=== PATIENT | male | born 1985 | race Caucasian/White ===

== ENCOUNTER 2016-05-28 13:18 | Observation (INO) ==
--- NOTE | 2016-05-28 13:43 | Emergency Department Note ---
Disposition Clinical Impression: Depression, Acute anxiety, Laceration of arm, left, multiple sites, Suicidal ideation Disposition: Admitted As Inpatient Forms: ED Satisfaction Letter General Adult HPI - General Chief complaint: ED Psychiatric Symptoms Stated complaint: SI Time Seen by Provider: 05/28/16 13:43 Source: patient Limitations: no limitations - History of Present Illness HPI Narrative: 30-year-old male with a history of psychiatric disease reports the emergency department complaining of anxiety and depression and feeling like harming himself. He cut himself multiple times on the left upper extremity. The patient reports she has been feeling poorly for about 3 days. Apart from injuring his left arm he has no physical complaints. There is no history of headache or confusion neck stiffness rash or fever no chest pain shortness of breath abdominal pain vomiting or diarrhea. No troubles walking talking hearing seeing or speaking no cough runny nose ear pain sore throat back pain urinary problems or any other complaint or concern. There is no history of drug overdose. His last tetanus shot was 4 years ago, he is sure about this. Onset (ago): hour(s) Pain Scale: 0 - Related Data Previous Rx's Medication Instructions Recorded Escitalopram [Lexapro] 10 mg PO DAILY #30 tablet 04/17/16 RisperiDONE [RisperDAL] 2 mg PO HS #60 tablet 04/17/16 TraZODone 50 mg PO HS PRN #30 tablet 04/17/16 Allergies Allergy/AdvReac Type Severity Reaction Status Date / Time Penicillins [PCN] Allergy Anaphylaxis Verified 05/28/16 13:19 All systems ED: reviewed and negative except as stated. Past Medical History - Past Medical History Medical history: Reports: no medical history, other (Anxiety PTSD bipolar depression) Surgical history: Reports: no surgical history Psychiatric history: Reports: anxiety, bipolar, PTSD, prior suicide attempt, previous psychiatric hospitalization - Social History Smoking Status: Current every day smoker Smokeless Tobacco Status: No Alcohol use: Reports: none Drug use: Reports: marijuana Physical Exam - General Limitations: no limitations General appearance: alert, in no apparent distress - Head Head exam: atraumatic, normocephalic, normal inspection - Eye Eye exam: Present: normal appearance, PERRL, EOMI. Absent: scleral icterus, conjunctival injection, miosis, mydriasis - ENT ENT exam: normal exam, normal oropharynx, mucous membranes moist - Neck Neck exam: Present: normal inspection, full ROM, trachea midline. Absent: tenderness - Chest Chest inspection: Present: normal inspection, symmetric chest wall rise. Absent : tenderness - Respiratory Respiratory exam: Present: normal lung sounds bilaterally. Absent: respiratory distress - Cardiovascular Cardiovascular exam: Present: regular rate, normal rhythm, normal heart sounds - Abdominal Exam Abdominal exam: Present: soft, Non-Tender, normal bowel sounds. Absent: tenderness, distention, guarding, rebound, rigidity, trauma - Extremities Exam Extremities exam: Present: full ROM, normal capillary refill, other (All extremities are supple and warm and well perfused without cyanosis or edema. No evidence of trauma apart from the left upper extremity where multiple superficial skin lacerations are noted without evidence of cellulitis. No crepitance of the skin blackening or blistering. No bleeding. No deep or suturable wounds. There is no evidence of neurovascular or neuromuscular compromise in any extremity and the extremities are otherwise atraumatic.). Absent: tenderness, pedal edema, joint swelling, calf tenderness - Expanded Lower Extremity Exam Hip/Pelvis exam: Present: full ROM Upper leg exam: Present: normal inspection, full ROM. Absent: tenderness Knee exam: Present: normal inspection, full ROM. Absent: tenderness Lower leg exam: Present: normal inspection, full ROM. Absent: tenderness Ankle exam: Present: normal inspection, full ROM. Absent: tenderness Foot/toe exam: Present: full ROM. Absent: tenderness Neurovascular/Tendon exam: Absent: motor deficit, sensory deficit, tendon deficit - Back Exam Back exam: Present: normal inspection, full ROM. Absent: tenderness, CVA tenderness (R), CVA tenderness (L), vertebral tenderness - Neurological Exam Neurological exam: Present: alert, oriented X3, CN II-XII intact. Absent: motor sensory deficit - Psychiatric Psychiatric exam: Present: normal affect, normal mood - Skin Skin exam: Present: warm, dry, intact (Skin intact apart from superficial lacerations left upper extremity multiple as described.), normal color. Absent : rash, cyanosis, diaphoresis, erythema, pallor, mottled Course Vital Signs Temperature 97.7 F 05/28/16 13:19 Pulse Rate 90 05/28/16 13:19 Respiratory Rate 16 05/28/16 13:19 Blood Pressure 129/78 05/28/16 13:19 O2 Sat by Pulse Oximetry 98 05/28/16 13:19 Temperature 97.7 F 05/28/16 13:19 Pulse Rate 90 05/28/16 13:19 Respiratory Rate 16 05/28/16 13:19 Blood Pressure 129/78 05/28/16 13:19 O2 Sat by Pulse Oximetry 98 05/28/16 13:19 Oxygen Delivery Oxygen Delivery Room Air Medical Decision Making - MDM Narrative Medical decision making narrative: The patient has a history of known psychiatric disease and is actively considering suicide. He has injured himself/cut his left upper extremity multiple places. Based on my history and clinical examination, the patient has been medically cleared. Psychiatric services have been consulted. Psychiatric services recommends admission to the psychiatric service. Patient currently stable pending admission - Lab Data Lab results reviewed: Yes I reviewed the patient's lab results. Result diagrams: 05/28/16 13:53 05/28/16 13:53 Lab Results 05/28/16 05/28/16 05/28/16 Range/Units 13:47 13:47 13:53 WBC 8.3 (4.3-11.1) K/mcL RBC 5.60 H (4.19-5.50) M/mcL Hgb 18.0 H (12.9-16.9) g/dL Hct 50.5 H (37.5-50.1) % MCV 90.2 (83.0-100.0) fL MCH 32.1 (28.0-33.3) pg MCHC 35.6 H (31.6-35.5) g/dL RDW 12.1 (11.5-14.5) % Plt Count 309 (140-400) K/mcL MPV 10.4 (9.4-12.4) fL Immature Gran % 0.5 (0-4) % Seg Neutrophils % 79.5 % Lymphocytes % 13.7 % Monocytes % 4.9 % Eosinophils % 1.0 % Basophils % 0.4 % Neutrophils # 6.6 (1.6-8.9) K/mcL Lymphocytes # 1.1 (0.6-4.6) K/mcL Monocytes # 0.4 (0.0-1.3) K/mcL Eosinophils # 0.1 (0.0-0.6) K/mcL Basophils # 0.0 (0.0-0.2) K/mcL Immature Plt Fraction 5.5 (1.1-6.1) % Sodium (136-145) mEq/L Potassium (3.5-4.5) mEq/L Chloride (98-109) mEq/L Carbon Dioxide (19-29) mEq/L BUN (8-26) mg/dL Creatinine (0.72-1.25) mg/dL Est GFR ( Amer) (> 60) Est GFR (Non-Af Amer) (> 60) BUN/Creatinine Ratio (6-26) Glucose (70-99) mg/dL Calculated Osmolality (280-300) Calcium (8.6-10.8) mg/dL Urine Color Yellow (Yellow) Urine Clarity Clear (Clear) Urine pH 6.5 (5.0-8.0) pH Units Ur Specific [place] 1.020 (1.010-1.025) Urine Protein Negative (Neg-Trace) mg/dL Urine Glucose (UA) Normal (Normal) mg/dL Urine Ketones Negative (Negative) mg/dL Urine Blood Negative (Negative) Urine Nitrite Negative (Negative) Urine Bilirubin Negative (Negative) Urine Urobilinogen Normal (Normal) mg/dL Ur Leukocyte Esterase Negative (Negative) Salicylates (15-30) mg/dL Urine Opiates Screen Negative (Boktbt=975) ng/mL Acetaminophen (10-30) mcg/mL Ur Barbiturates Screen Negative (Enhoqb=546) ng/mL Ur Phencyclidine Scrn Negative (Cutoff=25) ng/mL Ur Amphetamines Screen Negative (Khckff=6497) ng/mL U Benzodiazepines Scrn Negative (Amloje=633) ng/mL Urine Cocaine Screen Negative (Cutoff= 300) ng/mL U Marijuana (THC) Screen Negative (Cutoff = 50) ng/mL Ethyl Alcohol (0-10) mg/dL 05/28/16 Range/Units 13:53 WBC (4.3-11.1) K/mcL RBC (4.19-5.50) M/mcL Hgb (12.9-16.9) g/dL Hct (37.5-50.1) % MCV (83.0-100.0) fL MCH (28.0-33.3) pg MCHC (31.6-35.5) g/dL RDW (11.5-14.5) % Plt Count (140-400) K/mcL MPV (9.4-12.4) fL Immature Gran % (0-4) % Seg Neutrophils % % Lymphocytes % % Monocytes % % Eosinophils % % Basophils % % Neutrophils # (1.6-8.9) K/mcL Lymphocytes # (0.6-4.6) K/mcL Monocytes # (0.0-1.3) K/mcL Eosinophils # (0.0-0.6) K/mcL Basophils # (0.0-0.2) K/mcL Immature Plt Fraction (1.1-6.1) % Sodium 139 (136-145) mEq/L Potassium 3.9 (3.5-4.5) mEq/L Chloride 106 (98-109) mEq/L Carbon Dioxide 21 (19-29) mEq/L BUN 10 (8-26) mg/dL Creatinine 0.91 (0.72-1.25) mg/dL Est GFR ( Amer) > 60 (> 60) Est GFR (Non-Af Amer) > 60 (> 60) BUN/Creatinine Ratio 11 (6-26) Glucose 160 H (70-99) mg/dL Calculated Osmolality 290 (280-300) Calcium 9.5 (8.6-10.8) mg/dL Urine Color (Yellow) Urine Clarity (Clear) Urine pH (5.0-8.0) pH Units Ur Specific [place] (1.010-1.025) Urine Protein (Neg-Trace) mg/dL Urine Glucose (UA) (Normal) mg/dL Urine Ketones (Negative) mg/dL Urine Blood (Negative) Urine Nitrite (Negative) Urine Bilirubin (Negative) Urine Urobilinogen (Normal) mg/dL Ur Leukocyte Esterase (Negative) Salicylates < 5.0 L (15-30) mg/dL Urine Opiates Screen (Dckkww=596) ng/mL Acetaminophen < 1.0 L (10-30) mcg/mL Ur Barbiturates Screen (Rvgoex=369) ng/mL Ur Phencyclidine Scrn (Cutoff=25) ng/mL Ur Amphetamines Screen (Ggtskn=3214) ng/mL U Benzodiazepines Scrn (Ktfoaz=108) ng/mL Urine Cocaine Screen (Cutoff= 300) ng/mL U Marijuana (THC) Screen (Cutoff = 50) ng/mL Ethyl Alcohol < 10 (0-10) mg/dL
[2016-05-28 13:55] LABS: Bilirubin,Urine Negative (Negative); Blood,Urine Negative (Negative); Clarity,Urine Clear (Clear); Color,Urine Yellow (Yellow); Glucose,Urine (UA) Normal (Normal); Ketones,Urine Negative (Negative); Leukocyte Esterase,Urine Negative (Negative); Nitrite,Urine Negative (Negative); PH,Urine 6.5 pH Units (5.0-8.0); Protein,Urine Negative (Neg-Trace); Urobilinogen,Urine Normal (Normal)
[2016-05-28 13:59] LABS: Basophils % 0.4 %; Eosinophils # 0.1 K/mcL (0.0-0.6); Hematocrit 50.5 % (37.5-50.1); Immature Granulocytes % 0.5 % (0-4); Immature Platelets 5.5 % (1.1-6.1); Lymphocytes # 1.1 K/mcL (0.6-4.6); Lymphocytes % 13.7 %; Mean Corpuscular HGB Conc 35.6 g/dL (31.6-35.5); Mean Corpuscular Hemoglobin 32.1 pg (28.0-33.3); Mean Corpuscular Volume 90.2 fL (83.0-100.0); Mean Platelet Volume 10.4 fL (9.4-12.4); Monocytes # 0.4 K/mcL (0.0-1.3); Monocytes % 4.9 %; Neutrophils # 6.6 K/mcL (1.6-8.9); Platelet Count 309 K/mcL (140-400); Red Cell Distribution Width 12.1 % (11.5-14.5); Segmented Neutrophils % 79.5 %
[2016-05-28 14:00] LABS: Amphetamine Screen,Urine Negative ng/mL (Cutoff=1000); Barbiturate Screen,Urine Negative ng/mL (Cutoff=200); Benzodiazepines Screen,Urine Negative ng/mL (Cutoff=200); Cannabinoid Screen,Urine Negative ng/mL (Cutoff = 50); Cocaine Screen,Urine Negative ng/mL (Cutoff= 300); Opiate Screen,Urine Negative ng/mL (Cutoff=300); Phencyclidine Screen,Urine Negative ng/mL (Cutoff=25)
[2016-05-28 14:16] LABS: BUN/Creatinine Ratio 11 (6-26); Blood Urea Nitrogen 10 mg/dL (8-26); Calcium 9.5 mg/dL (8.6-10.8); Carbon Dioxide 21 mEq/L (19-29); Chloride 106 mEq/L (98-109); Glucose 160 mg/dL (70-99); Osmolality,Calculated 290 (280-300); Potassium 3.9 mEq/L (3.5-4.5); Sodium 139 mEq/L (136-145); eGFR For African Americans > 60 (> 60); eGFR For Non-African Americans > 60 (> 60)
[2016-05-28 14:17] LABS: Acetaminophen < 1.0 mcg/mL (10-30); Ethanol < 10 mg/dL (0-10); Salicylate < 5.0 mg/dL (15-30)
[2016-05-28] MEDS ORDERED: *HR* LORazepam 1 MG TABLET PO PRN (16:31)
[2016-05-28] MEDS ORDERED: Haloperidol Lactate 5 MG/ML VIAL IM PRN (16:31)
[2016-05-28] MEDS ORDERED: MOM Conc 10 ML UD.LIQ PO PRN (16:31)
[2016-05-28] MEDS ORDERED: Acetaminophen 325 MG TABLET PO PRN (16:31)
[2016-05-28] MEDS ORDERED: Mag Hydrox/Al Hydrox/Simeth 30 ML UDC PO PRN (16:31)
[2016-05-28] MEDS ORDERED: *HR* LORazepam 2 MG/ML VIAL IM PRN (16:31)
[2016-05-28] MEDS ORDERED: traZODone 50 MG TABLET PO PRN (16:33)
[2016-05-28] MEDS: Nicotine 2 MG GUM BC PRN (19:04)
[2016-05-28] MEDS ORDERED: risperiDONE 1 MG TABLET PO SCH (21:00)
[2016-05-29 08:54] VITALS: BP 112/78
[2016-05-29] MEDS: Nicotine 2 MG GUM BC PRN (09:42)
--- NOTE | 2016-05-29 12:57 | Discharge Summary ---
Date of Encounter: 05/29/16 Time of Encounter: 12:40 History of Present Illness Chief complaint: "I felt confused" Admitted From: Emergency Dept History of Present Illness: Mr. Craven is a 30 year old male who was admitted to the psychiatric unit from the emergency room last evening because he reported he had suicidal thoughts. The patient tells me that he was feeling very confused having been off his medications for 2 weeks and superficially cut himself on his left arm during the confusion and frustration in a desperate attempt to get in to see someone in mental health and get refills on his medication. He told me he was feeling very anxious and had a difficult time focusing and concentrating; that his brain did not feel like it was working right. He was feeling hopeless and helpless without his medications and emotionally sad. He assured me he did not want to , and never did. He states that he is been doing fine taking his medications, his mood was stable and his thoughts were clear. He has a 6-month- old at home to support and take care of and in his previous condition, was finding it difficult to do that. He told me that all he needed was to get restarted on his medications till he could find a provider to prescribe them for him. He had poor sleep, poor attention and concentration. No thoughts of suicide now or homicide. He had no auditory or visual hallucinations. He had no thought blocking, paranoia, no mind control or mind reading. He stated he just felt desperate and did not know how to get into see a psychiatrist to get the medications filled. He tells me that after having received a couple doses of medication since admission that he was feeling much better. His mood was becoming more even as well as his thoughts. He slept last night 9 to 10 hours where he previously getting 2 or 3 hours a night most nights the week prior to admission. He does not know exactly what it is but states that he feels better already and is able to cope with things and think clear. I explained to him that without the medication the biochemistry of the nerve receptors in his brain are going through somewhat of a "withdrawal" are having difficulty functioning without the medications. tray service worker had arranged for him to have a follow-up visit at [facility] in 3 days. He stated he wanted to go home today, that he was safe and finally feeling better. He is no longer feeling desperate now that he has the medication and has follow-up appointments. Past Med Surg Social Fam HX - Past Medical History Medical history: no medical history, other - Past Psychiatric History Psychiatric history: Reports: anxiety, depression Family psychiatric history: Yes (His aunt has a mental health) Family History of Suicide: Unknown - Past Surgical History Surgical History: no surgical history - Social History Smoking Status: Current every day smoker Smokeless Tobacco Status: No Alcohol use: none Drug use: marijuana Occupational status: employed Current living situation: Home - Independent Activity Level: Independent ambulation Recent Out of Country Travel Within the Last 8 Weeks: No Exposure or Possible Exposure to Illness During Travel: No - Family History Father Hx Family Cardiac Disorders: Yes (high cholesterol) Medications - Discharge Medications Prescriptions: Escitalopram [Lexapro] 10 mg PO DAILY #5 tablet RisperiDONE [RisperDAL] 2 mg PO HS #5 tablet TraZODone 50 mg PO HS PRN #5 tablet PRN Reason: Insomnia Escitalopram [Lexapro] 10 mg PO DAILY #5 tablet 05/29/16 [Rx] RisperiDONE [RisperDAL] 2 mg PO HS #5 tablet 05/29/16 [Rx] TraZODone 50 mg PO HS PRN #5 tablet 05/29/16 [Rx] Allergies Penicillins [PCN] Allergy (Verified 05/28/16 13:19) Anaphylaxis Review of Systems Psychiatric: Reports: anxiety, abnormal sleep pattern, suicidal ideation, difficulty concentrating, hopelessness Mental Status Exam - Mental Status Exam Patient orientation: Yes Person, Yes Time, Yes Place Level of alertness: Alert, Follows commands Patient appearance: Appropriate, Well-nourished Behavior: anxious (mildly) Psychomotor activity: Normal Eye contact: Maintains Eye Contact Mood description: Depressed (mildly), Anxious (mild) Affect description: full range Speech pattern: Normal rate, Normal rhythm, Normal tone, Appropriate Speech Volume: Normal Thought process: Logical, Linear, Goal Oriented Thought Content: Yes Intact Judgment: Fair Insight: Full Results - Vital Signs Vital signs: Temp Pulse Resp BP Pulse Ox 97.6 F 91 16 112/78 98 05/29/16 08:53 05/29/16 08:53 05/29/16 08:53 05/29/16 08:53 05/28/16 13:19 - Labs Labs: Laboratory Last Values WBC 8.3 K/mcL (4.3-11.1) 05/28/16 13:53 RBC 5.60 M/mcL (4.19-5.50) H 05/28/16 13:53 Hgb 18.0 g/dL (12.9-16.9) H 05/28/16 13:53 Hct 50.5 % (37.5-50.1) H 05/28/16 13:53 MCV 90.2 fL (83.0-100.0) 05/28/16 13:53 MCH 32.1 pg (28.0-33.3) 05/28/16 13:53 MCHC 35.6 g/dL (31.6-35.5) H 05/28/16 13:53 RDW 12.1 % (11.5-14.5) 05/28/16 13:53 Plt Count 309 K/mcL (140-400) 05/28/16 13:53 MPV 10.4 fL (9.4-12.4) 05/28/16 13:53 Immature Gran % 0.5 % (0-4) 05/28/16 13:53 Seg Neutrophils % 79.5 % 05/28/16 13:53 Lymphocytes % 13.7 % 05/28/16 13:53 Monocytes % 4.9 % 05/28/16 13:53 Eosinophils % 1.0 % 05/28/16 13:53 Basophils % 0.4 % 05/28/16 13:53 Neutrophils # 6.6 K/mcL (1.6-8.9) 05/28/16 13:53 Lymphocytes # 1.1 K/mcL (0.6-4.6) 05/28/16 13:53 Monocytes # 0.4 K/mcL (0.0-1.3) 05/28/16 13:53 Eosinophils # 0.1 K/mcL (0.0-0.6) 05/28/16 13:53 Basophils # 0.0 K/mcL (0.0-0.2) 05/28/16 13:53 Immature Plt Fraction 5.5 % (1.1-6.1) 05/28/16 13:53 Sodium 139 mEq/L (136-145) 05/28/16 13:53 Potassium 3.9 mEq/L (3.5-4.5) 05/28/16 13:53 Chloride 106 mEq/L (98-109) 05/28/16 13:53 Carbon Dioxide 21 mEq/L (19-29) 05/28/16 13:53 BUN 10 mg/dL (8-26) 05/28/16 13:53 Creatinine 0.91 mg/dL (0.72-1.25) 05/28/16 13:53 Est GFR ( Amer) > 60 (> 60) 05/28/16 13:53 Est GFR (Non-Af Amer) > 60 (> 60) 05/28/16 13:53 BUN/Creatinine Ratio 11 (6-26) 05/28/16 13:53 Glucose 160 mg/dL (70-99) H 05/28/16 13:53 Calculated Osmolality 290 (280-300) 05/28/16 13:53 Calcium 9.5 mg/dL (8.6-10.8) 05/28/16 13:53 Urine Color Yellow (Yellow) 05/28/16 13:47 Urine Clarity Clear (Clear) 05/28/16 13:47 Urine pH 6.5 pH Units (5.0-8.0) 05/28/16 13:47 Ur Specific [place] 1.020 (1.010-1.025) 05/28/16 13:47 Urine Protein Negative mg/dL (Neg-Trace) 05/28/16 13:47 Urine Glucose (UA) Normal mg/dL (Normal) 05/28/16 13:47 Urine Ketones Negative mg/dL (Negative) 05/28/16 13:47 Urine Blood Negative (Negative) 05/28/16 13:47 Urine Nitrite Negative (Negative) 05/28/16 13:47 Urine Bilirubin Negative (Negative) 05/28/16 13:47 Urine Urobilinogen Normal mg/dL (Normal) 05/28/16 13:47 Ur Leukocyte Esterase Negative (Negative) 05/28/16 13:47 Salicylates < 5.0 mg/dL (15-30) L 05/28/16 13:53 Urine Opiates Screen Negative ng/mL (Pvpcpx=285) 05/28/16 13:47 Acetaminophen < 1.0 mcg/mL (10-30) L 05/28/16 13:53 Ur Barbiturates Screen Negative ng/mL (Tftsck=218) 05/28/16 13:47 Ur Phencyclidine Scrn Negative ng/mL (Cutoff=25) 05/28/16 13:47 Ur Amphetamines Screen Negative ng/mL (Xeqegj=8553) 05/28/16 13:47 U Benzodiazepines Scrn Negative ng/mL (Hdqfhy=243) 05/28/16 13:47 Urine Cocaine Screen Negative ng/mL (Cutoff= 300) 05/28/16 13:47 U Marijuana (THC) Screen Negative ng/mL (Cutoff = 50) 05/28/16 13:47 Ethyl Alcohol < 10 mg/dL (0-10) 05/28/16 13:53 Diagnosis - Discharge Diagnosis (1) Schizoaffective disorder, bipolar type Status: Acute Assessment and Plan - Patient/Caregiver Discharge Instructions Activity: resume usual activities as tolerated Diet: regular diet - Follow up Plan Follow up with: [facility] [Other] (Staff will contact you directly to reschedule your next appointment.) [facility] [employer] [place] [Outside] - 05/31/16 9:30 am (The above appointment is with Emma Sifuentes, psychiatric prescriber. Please arrive 15 minutes early to complete paperwork. Please bring your insurance card, photo ID and medications in their original bottles. If you do not have insurance, bring proof of income to apply for the sliding fee scale. If you are unable to keep this appointment, 24 hour business notice of cancellation is expected. ) Functional capacity at discharge: independent ambulation Overall status at discharge: Stable Disposition: Home, Self-Care Provider Date of admission: 05/28/16 16:29 Primary care physician: PCP NO Discharging clinician: Armond Paredes [facility] Hospital course: (see HPI) 06/01/2016: Addendum: Patient called the unit and said that he was refused/ rescheduled his appointment with [facility] because he did not have all that he needed for the intake. He is now rescheduled for the first week of June. He needs a 30 day supply of the medication to cover him till the appointment. [facility] . This was completed; Lexapro 10 mg po qd #30, Risperdal 2 mg po q HS #30, Trazodone 50 mg po qHS prn #20. Time spent discussing smoking cessation with patient: 3 to 10 minutes Does patient wish to continue nicotine replacement upon disc: No - Time Spent with Patient Total time spent providing and/or coordinating discharge services: 25 min Less than 30 minutes Procedures - Procedures Procedures: Medication Management, Crisis Stabilization Quality - Multiple Antipsychotics Patient discharged on 2 or more antipsychotic medications: No
== END 2016-05-29 14:20 | disposition home or self-care (01) ==
LOC: EMEROO 13:18 → 1ANU 13:18
PROVIDERS: ADMIT Psychiatry & Neurology Psychiatry; ATTEND Psychiatry & Neurology Psychiatry